=== PATIENT | female | born 1945 | race Caucasian/White ===

== ENCOUNTER 2020-06-10 11:33 | Inpatient (IN) ==
[2020-06-10] MEDS ORDERED: *HR* Dextrose 50 % in Water (Vial) 50 ML VIAL IVP PRN (15:10)
[2020-06-10] MEDS ORDERED: Dextrose Gel 15 GM/37.5 ML TUBE PO PRN ×2 (15:10)
[2020-06-10] MEDS ORDERED: D5% in Water 1,000 ML IVC PRN (15:10)
[2020-06-10] MEDS ORDERED: Naloxone 0.4 MG/ML INJ IVP PRN (15:11)
[2020-06-10] MEDS ORDERED: Acetaminophen 325 MG TABLET PO PRN (15:22)
[2020-06-10] MEDS ORDERED: Ondansetron 4 MG/2 ML VIAL IVP PRN (15:22)
[2020-06-10] MEDS: Insulin LISPRO 300 UNITS/3 ML VIAL SQ SCH ×2 (17:43→20:16)
[2020-06-10] MEDS ORDERED: Perflutren Lipid Microsphere 1.3 ML in 0.9 % Sodium Chloride 8.7 ML IVP PRN (18:01)
[2020-06-10] MEDS: Aspirin Enteric Coated 81 MG Tablet PO SCH ×2 (18:11→20:23)
[2020-06-10] MEDS ORDERED: Potassium Chloride Elixir 20 MEQ/15 ML UDC PO ONE (20:20)
[2020-06-10] MEDS ORDERED: Magnesium Oxide 400 MG TABLET PO ONE (20:20)
[2020-06-11 01:19] LABS: Hematocrit 46.5 % (35.3-44.9); Hemoglobin 15.3 g/dL (11.5-15.4); Mean Corpuscular HGB Conc 32.9 g/dL (31.6-35.5); Mean Corpuscular Hemoglobin 27.4 pg (28.0-33.3); Mean Corpuscular Volume 83.2 fL (83.0-100.0); Mean Platelet Volume 9.5 fL (9.4-12.4); Platelet Count 271 K/mcL (140-400); Red Blood Count 5.59 M/mcL (3.82-4.97); Red Cell Distribution Width 12.5 % (11.5-14.5); White Blood Count 10.9 K/mcL (4.3-11.1)
[2020-06-11 01:29] LABS: BUN/Creatinine Ratio 19 (6-26); Blood Urea Nitrogen 11 mg/dL (8-23); Calcium 9.8 mg/dL (8.6-10.3); Carbon Dioxide 22 mEq/L (23-29); Chloride 104 mEq/L (98-107); Chol/HDL Ratio 5.9 (0-4.9); Cholesterol 206 mg/dL (< 200); Glucose 256 mg/dL (70-105); HDL Cholesterol 35 mg/dL (40-59); LDL Cholesterol,Calculated 130 mg/dL (< 100); Magnesium 1.5 mg/dL (1.6-2.6); Osmolality,Calculated 288 (280-300); Phosphorous 3.1 mg/dL (2.7-4.5); Potassium 4.3 mEq/L (3.5-5.1); Sodium 135 mEq/L (136-145); Triglycerides 203 mg/dL (< 150); eGFR For African Americans > 60 (> 60); eGFR For Non-African Americans > 60 (> 60)
[2020-06-11 02:41] LABS: Estimated Average Glucose 266 mg/dl
[2020-06-11] MEDS: Preparation H Ointment 57 GM TUBE RC SCH ×4 (04:49→21:22)
[2020-06-11] MEDS: Aspirin Enteric Coated 81 MG Tablet PO SCH (08:49)
[2020-06-11] MEDS: Insulin LISPRO 300 UNITS/3 ML VIAL SQ SCH ×4 (08:49→21:19)
[2020-06-11] MEDS ORDERED: Magnesium Sulfate 1 GM/102 ML PIGGYBACK IVPB ONE (11:11)
[2020-06-12 04:44] LABS: Hematocrit 44.8 % (35.3-44.9); Mean Corpuscular HGB Conc 33.5 g/dL (31.6-35.5); Mean Corpuscular Hemoglobin 27.9 pg (28.0-33.3); Mean Corpuscular Volume 83.4 fL (83.0-100.0); Mean Platelet Volume 9.5 fL (9.4-12.4); Platelet Count 245 K/mcL (140-400); Red Blood Count 5.37 M/mcL (3.82-4.97); Red Cell Distribution Width 12.3 % (11.5-14.5)
[2020-06-12 04:53] LABS: BUN/Creatinine Ratio 26 (6-26); Blood Urea Nitrogen 17 mg/dL (8-23); Calcium 9.3 mg/dL (8.6-10.3); Carbon Dioxide 23 mEq/L (23-29); Chloride 105 mEq/L (98-107); Glucose 259 mg/dL (70-105); Osmolality,Calculated 296 (280-300); Potassium 3.6 mEq/L (3.5-5.1); Sodium 138 mEq/L (136-145); eGFR For African Americans > 60 (> 60); eGFR For Non-African Americans > 60 (> 60)
[2020-06-12] MEDS: Insulin LISPRO 300 UNITS/3 ML VIAL SQ SCH ×4 (08:20→16:52)
[2020-06-12] MEDS: Aspirin 325 MG TABLET PO SCH (08:20)
[2020-06-12] MEDS: Preparation H Ointment 57 GM TUBE RC SCH ×2 (08:21→19:52)
[2020-06-12] MEDS ORDERED: Insulin LISPRO 300 UNITS/3 ML VIAL SQ SCH ×2 (11:30→21:00)
[2020-06-12] MEDS: Metoprolol XL (24 HR) Succ 50 MG TAB.ER.24H PO SCH (12:15)
[2020-06-12] MEDS: amLODIPine 5 MG TABLET PO SCH ×2 (12:15→19:51)
[2020-06-13 05:41] LABS: Hematocrit 45.1 % (35.3-44.9); Hemoglobin 14.8 g/dL (11.5-15.4); Mean Corpuscular HGB Conc 32.8 g/dL (31.6-35.5); Mean Corpuscular Hemoglobin 27.8 pg (28.0-33.3); Mean Corpuscular Volume 84.6 fL (83.0-100.0); Mean Platelet Volume 9.4 fL (9.4-12.4); Platelet Count 242 K/mcL (140-400); Red Blood Count 5.33 M/mcL (3.82-4.97); Red Cell Distribution Width 12.4 % (11.5-14.5); White Blood Count 8.5 K/mcL (4.3-11.1)
[2020-06-13] MEDS: Insulin LISPRO 300 UNITS/3 ML VIAL SQ SCH ×3 (08:54→17:45)
[2020-06-13] MEDS: amLODIPine 5 MG TABLET PO SCH ×2 (08:54→20:36)
[2020-06-13] MEDS: Aspirin 325 MG TABLET PO SCH (08:54)
[2020-06-13] MEDS: Metoprolol XL (24 HR) Succ 50 MG TAB.ER.24H PO SCH (08:54)
[2020-06-13] MEDS: Preparation H Ointment 57 GM TUBE RC SCH ×2 (08:55→20:36)
[2020-06-13] MEDS ORDERED: Insulin LISPRO 300 UNITS/3 ML VIAL SQ SCH (21:00)
[2020-06-14 04:27] LABS: Hematocrit 46.3 % (35.3-44.9); Hemoglobin 15.1 g/dL (11.5-15.4); Mean Corpuscular HGB Conc 32.6 g/dL (31.6-35.5); Mean Corpuscular Hemoglobin 27.3 pg (28.0-33.3); Mean Corpuscular Volume 83.7 fL (83.0-100.0); Mean Platelet Volume 9.3 fL (9.4-12.4); Platelet Count 261 K/mcL (140-400); Red Blood Count 5.53 M/mcL (3.82-4.97); Red Cell Distribution Width 12.3 % (11.5-14.5); White Blood Count 8.5 K/mcL (4.3-11.1)
[2020-06-14] MEDS: Aspirin 325 MG TABLET PO SCH (07:47)
[2020-06-14] MEDS: amLODIPine 5 MG TABLET PO SCH (07:47)
[2020-06-14] MEDS: Metoprolol XL (24 HR) Succ 50 MG TAB.ER.24H PO SCH (07:47)
[2020-06-14] MEDS: Insulin LISPRO 300 UNITS/3 ML VIAL SQ SCH ×2 (07:50→13:15)
[2020-06-14] MEDS: Preparation H Ointment 57 GM TUBE RC SCH (07:56)
[2020-06-14] MEDS ORDERED: polyethylene glycoL 3350 17 GM POWD.PACK PO SCH (09:00)
[2020-06-14 11:53] LABS: Adenovirus Not Detected (Not Detect); Coronavirus 229E Not Detected (Not Detect); Coronavirus HKU1 Not Detected (Not Detect); Coronavirus NL63 Not Detected (Not Detect); Coronavirus OC43 Not Detected (Not Detect); Human Metapneumovirus Not Detected (Not Detect); Human Rhinovirus/Enterovirus Not Detected (Not Detect); Influenza A Subtype 2009 H1 Not Detected (Not Detect); SARS-CoV-2 Not Detected (Not Detect)
[2020-06-14 11:54] LABS: Bordetella Pertussis Not Detected (Not Detect); Chlamydophila pneumoniae Not Detected (Not Detect); Influenza B Not Detected (Not Detect); Mycoplasma pneumoniae Not Detected (Not Detect); Parainfluenza Virus 1 Not Detected (Not Detect); Parainfluenza Virus 2 Not Detected (Not Detect); Parainfluenza Virus 3 Not Detected (Not Detect); Parainfluenza Virus 4 Not Detected (Not Detect); Respiratory Syncytial Virus Not Detected (Not Detect)
[2020-06-14 15:41] VITALS: BP 124/73
[2020-06-14] MEDS ORDERED: Insulin DETEMIR 100 UNIT/ML X5UNITS SQ SCH (21:00)
== END 2020-06-14 17:37 | DRG 66 ==
LOC: 3BNU
PROVIDERS: ADMIT Student in an Organized Health Care Education/Training Program; ATTEND Student in an Organized Health Care Education/Training Program

== ENCOUNTER 2021-06-28 18:13 | Inpatient (IN) ==
[2021-06-28] MEDS ORDERED: Ondansetron 4 MG/2 ML VIAL IVP PRN (23:41)
[2021-06-28] MEDS ORDERED: Melatonin 3 MG TABLET PO PRN (23:41)
[2021-06-28] MEDS ORDERED: Naloxone 0.4 MG/ML INJ IVP PRN (23:41)
[2021-06-29] MEDS ORDERED: 0.9 % Sodium Chloride 1,000 ML IVC ONE (02:12)
[2021-06-29] MEDS ORDERED: D5% in Water 1,000 ML IVC PRN (02:16)
[2021-06-29] MEDS ORDERED: Dextrose Gel 15 GM/37.5 ML TUBE PO PRN ×2 (02:16)
[2021-06-29] MEDS ORDERED: *HR* Dextrose 50 % in Water (Syg) 50 ML SYRINGE IVP PRN (02:16)
[2021-06-29 03:08] LABS: Basophils % 0.2 %; Hematocrit 44.5 % (35.3-44.9); Hemoglobin 14.7 g/dL (11.5-15.4); Immature Granulocytes % 0.2 % (0-4); Lymphocytes # 1.3 K/mcL (0.6-4.6); Lymphocytes % 15.2 %; Mean Corpuscular Hemoglobin 27.7 pg (28.0-33.3); Mean Corpuscular Volume 83.8 fL (83.0-100.0); Mean Platelet Volume 9.2 fL (9.4-12.4); Neutrophils # 6.3 K/mcL (1.6-8.9); Platelet Count 131 K/mcL (140-400); Red Blood Count 5.31 M/mcL (3.82-4.97); Red Cell Distribution Width 12.8 % (11.5-14.5); Segmented Neutrophils % 73.4 %; White Blood Count 8.6 K/mcL (4.3-11.1)
[2021-06-29 03:17] LABS: INR 1.1; Prothrombin Time 12.4 Seconds (9.4-12.1)
[2021-06-29 03:23] LABS: Alanine Aminotransferase 20 Units/L (7-52); Albumin 3.5 g/dL (3.5-5.7); Albumin/Globulin Ratio 1.4 (1.1-2.2); Alkaline Phosphatase 58 Units/L (34-104); Aspartate Amino Transferase 20 Units/L (13-39); BUN/Creatinine Ratio 14 (6-26); Bilirubin,Total 0.4 mg/dL (0.3-1.0); Blood Urea Nitrogen 7 mg/dL (8-23); Calcium 8.3 mg/dL (8.6-10.3); Carbon Dioxide 23 mEq/L (23-29); Chloride 107 mEq/L (98-107); Chol/HDL Ratio 2.7 (0-4.9); Cholesterol 98 mg/dL (< 200); Globulin 2.5 g/dL (2.4-3.5); Glucose 75 mg/dL (70-105); HDL Cholesterol 36 mg/dL (40-59); LDL Cholesterol,Calculated 50 mg/dL (< 100); Magnesium 1.6 mg/dL (1.6-2.6); Osmolality,Calculated 285 (280-300); Phosphorous 2.3 mg/dL (2.7-4.5); Sodium 139 mEq/L (136-145); Triglycerides 60 mg/dL (< 150); Troponin I 0.03 ng/mL (< 0.04); eGFR For African Americans > 60 (> 60); eGFR For Non-African Americans > 60 (> 60)
[2021-06-29] MEDS ORDERED: Potassium Chloride Elixir 20 MEQ/15 ML UDC PO ONE (05:18)
[2021-06-29 07:59] LABS: Estimated Average Glucose 209 mg/dl; Hemoglobin A1C 8.9 %
[2021-06-29] MEDS: Insulin LISPRO 300 UNITS/3 ML VIAL SUBQ SCH ×4 (08:37→20:52)
[2021-06-29] MEDS ORDERED: cefTRIAXone 1,000 MG in Water for inj. (sterile) 10 ML IVP SCH (09:00)
[2021-06-29] MEDS: Aspirin Enteric Coated 81 MG Tablet PO SCH (09:19)
[2021-06-29] MEDS: Acetaminophen 325 MG TABLET PO PRN ×2 (09:24→21:07)
[2021-06-29] MEDS ORDERED: polyethylene glycoL 3350 17 GM POWD.PACK PO PRN (12:16)
[2021-06-29] MEDS: amLODIPine 5 MG TABLET PO SCH (20:52)
[2021-06-30 06:07] LABS: Hematocrit 43.1 % (35.3-44.9); Hemoglobin 13.9 g/dL (11.5-15.4); Mean Corpuscular HGB Conc 32.3 g/dL (31.6-35.5); Mean Corpuscular Volume 83.7 fL (83.0-100.0); Mean Platelet Volume 9.4 fL (9.4-12.4); Platelet Count 118 K/mcL (140-400); Red Blood Count 5.15 M/mcL (3.82-4.97); Red Cell Distribution Width 12.5 % (11.5-14.5); White Blood Count 4.8 K/mcL (4.3-11.1)
[2021-06-30 06:09] LABS: Alanine Aminotransferase 16 Units/L (7-52); Albumin 3.2 g/dL (3.5-5.7); Albumin/Globulin Ratio 1.4 (1.1-2.2); Alkaline Phosphatase 52 Units/L (34-104); Aspartate Amino Transferase 24 Units/L (13-39); BUN/Creatinine Ratio 9 (6-26); Bilirubin,Total 0.5 mg/dL (0.3-1.0); Blood Urea Nitrogen 5 mg/dL (8-23); Calcium 7.8 mg/dL (8.6-10.3); Carbon Dioxide 23 mEq/L (23-29); Chloride 105 mEq/L (98-107); Globulin 2.3 g/dL (2.4-3.5); Glucose 99 mg/dL (70-105); Osmolality,Calculated 283 (280-300); Phosphorous 2.3 mg/dL (2.7-4.5); Potassium 2.9 mEq/L (3.5-5.1); Sodium 138 mEq/L (136-145); Total Protein 5.5 g/dL (6.4-8.9); eGFR For African Americans > 60 (> 60); eGFR For Non-African Americans > 60 (> 60)
[2021-06-30] MEDS: Aspirin Enteric Coated 81 MG Tablet PO SCH (08:59)
[2021-06-30] MEDS: Acetaminophen 325 MG TABLET PO PRN ×2 (08:59→20:14)
[2021-06-30] MEDS: amLODIPine 5 MG TABLET PO SCH ×2 (08:59→20:15)
[2021-06-30] MEDS: Insulin LISPRO 300 UNITS/3 ML VIAL SUBQ SCH ×4 (09:00→20:16)
[2021-06-30] MEDS: Metoprolol XL (24 HR) Succ 50 MG TAB.ER.24H PO SCH (10:46)
[2021-06-30] MEDS ORDERED: Potassium Phosphate 44 MEQ in 0.9 % Sodium Chloride 250 ML IVPB ONE (13:00)
[2021-06-30] MEDS: Piperacillin/Tazobactam 3.375 GM in 0.9 % Sodium Chloride Mini Bag 100 ML IVPB SCH (17:27)
[2021-06-30] MEDS: Gabapentin 100 MG CAPSULE PO SCH (20:15)
[2021-07-01] MEDS: Piperacillin/Tazobactam 3.375 GM in 0.9 % Sodium Chloride Mini Bag 100 ML IVPB SCH ×3 (01:21→17:28)
[2021-07-01 03:01] LABS: Hematocrit 43.9 % (35.3-44.9); Hemoglobin 14.4 g/dL (11.5-15.4); Mean Corpuscular HGB Conc 32.8 g/dL (31.6-35.5); Mean Corpuscular Hemoglobin 27.1 pg (28.0-33.3); Mean Corpuscular Volume 82.7 fL (83.0-100.0); Mean Platelet Volume 9.4 fL (9.4-12.4); Platelet Count 128 K/mcL (140-400); Red Blood Count 5.31 M/mcL (3.82-4.97); Red Cell Distribution Width 12.6 % (11.5-14.5); White Blood Count 4.4 K/mcL (4.3-11.1)
[2021-07-01 03:22] LABS: BUN/Creatinine Ratio 15 (6-26); Blood Urea Nitrogen 8 mg/dL (8-23); Calcium 7.9 mg/dL (8.6-10.3); Carbon Dioxide 22 mEq/L (23-29); Chloride 105 mEq/L (98-107); Glucose 122 mg/dL (70-105); Osmolality,Calculated 282 (280-300); Phosphorous 2.4 mg/dL (2.7-4.5); Potassium 4.5 mEq/L (3.5-5.1); Sodium 136 mEq/L (136-145); eGFR For African Americans > 60 (> 60); eGFR For Non-African Americans > 60 (> 60)
[2021-07-01] MEDS: Insulin LISPRO 300 UNITS/3 ML VIAL SUBQ SCH ×4 (07:33→20:40)
[2021-07-01] MEDS: Gabapentin 100 MG CAPSULE PO SCH ×2 (09:02→20:41)
[2021-07-01] MEDS: Aspirin Enteric Coated 81 MG Tablet PO SCH (09:02)
[2021-07-01] MEDS: Metoprolol XL (24 HR) Succ 50 MG TAB.ER.24H PO SCH (09:02)
[2021-07-01] MEDS: amLODIPine 5 MG TABLET PO SCH ×2 (09:02→20:41)
[2021-07-01] MEDS: Acetaminophen 325 MG TABLET PO PRN (12:18)
[2021-07-01 14:59] LABS: Bilirubin,Urine Negative (Negative); Blood,Urine Negative (Negative); Clarity,Urine Clear (Clear); Color,Urine Light-Yellow (Yellow); Glucose,Urine (UA) 300 mg/dL (Normal); Ketones,Urine Trace mg/dL (Negative); Leukocyte Esterase,Urine Negative (Negative); Nitrite,Urine Negative (Negative); PH,Urine 6.5 pH Units (5.0-8.0); Protein,Urine Negative (Neg-Trace); RBC,Urine 0-3 per hpf (0-3); Specific Gravity,Urine 1.017 (1.010-1.025); Squamous Epithelial Cell,Urine Few per hpf (None-Few); Urobilinogen,Urine Normal (Normal); WBC,Urine 0-3 per hpf (0-3)
[2021-07-01 16:11] LABS: Adenovirus Not Detected (Not Detect); Coronavirus 229E Not Detected (Not Detect); Coronavirus HKU1 Not Detected (Not Detect); Coronavirus NL63 Not Detected (Not Detect); Coronavirus OC43 Not Detected (Not Detect)
[2021-07-01 16:12] LABS: Bordetella Pertussis Not Detected (Not Detect); Chlamydophila pneumoniae Not Detected (Not Detect); Human Metapneumovirus Not Detected (Not Detect); Human Rhinovirus/Enterovirus Not Detected (Not Detect); Influenza A Subtype 2009 H1 Not Detected (Not Detect); Influenza B Not Detected (Not Detect); Mycoplasma pneumoniae Not Detected (Not Detect); Parainfluenza Virus 1 Not Detected (Not Detect); Parainfluenza Virus 2 Not Detected (Not Detect); Parainfluenza Virus 3 Not Detected (Not Detect); Parainfluenza Virus 4 Not Detected (Not Detect); Respiratory Syncytial Virus Not Detected (Not Detect); SARS-CoV-2 DETECTED (Not Detect)
[2021-07-01] MEDS ORDERED: Albuterol 2.5 MG/3 ML NEBULIZER IH PRN (17:10)
[2021-07-01] MEDS: Dexamethasone Sodium Phos/PF 10 MG/ML VIAL IVP SCH (19:01)
[2021-07-01] MEDS ORDERED: CefTRIAXone 1,000 MG VIAL ONE ×2 (19:01→19:03)
[2021-07-01] MEDS: Azithromycin 500 MG in 0.9 % Sodium Chloride 250 ML IVPB SCH (19:02)
[2021-07-01] MEDS: cefTRIAXone 1,000 MG in 0.9 % Sodium Chloride Mini Bag 100 ML IVPB SCH ×2 (19:06→19:13)
[2021-07-01] MEDS: *HR* Enoxaparin 40 MG/0.4 ML SYRINGE SQ SCH (20:41)
[2021-07-01] MEDS: Ascorbic Acid 500 MG TABLET PO SCH (20:41)
[2021-07-01] MEDS ORDERED: Melatonin 3 MG TABLET PO SCH (21:00)
[2021-07-01] MEDS: Ipratropium/Albuterol Neb 3 ML IH SCH (21:02)
[2021-07-02 03:13] LABS: Hematocrit 45.8 % (35.3-44.9); Hemoglobin 15.3 g/dL (11.5-15.4); Mean Corpuscular HGB Conc 33.4 g/dL (31.6-35.5); Mean Corpuscular Hemoglobin 27.6 pg (28.0-33.3); Mean Corpuscular Volume 82.7 fL (83.0-100.0); Mean Platelet Volume 9.1 fL (9.4-12.4); Platelet Count 145 K/mcL (140-400); Red Blood Count 5.54 M/mcL (3.82-4.97); Red Cell Distribution Width 12.5 % (11.5-14.5); White Blood Count 3.9 K/mcL (4.3-11.1)
[2021-07-02] MEDS: Ipratropium/Albuterol Neb 3 ML IH SCH ×2 (03:25→10:01)
[2021-07-02 03:31] LABS: Alanine Aminotransferase 35 Units/L (7-52); Albumin 3.2 g/dL (3.5-5.7); Albumin/Globulin Ratio 1.2 (1.1-2.2); Alkaline Phosphatase 57 Units/L (34-104); Aspartate Amino Transferase 48 Units/L (13-39); BUN/Creatinine Ratio 18 (6-26); Bilirubin,Total 0.5 mg/dL (0.3-1.0); Blood Urea Nitrogen 10 mg/dL (8-23); Carbon Dioxide 26 mEq/L (23-29); Chloride 100 mEq/L (98-107); Globulin 2.7 g/dL (2.4-3.5); Glucose 127 mg/dL (70-105); Lactate Dehydrogenase 293 Units/L (140-271); Osmolality,Calculated 281 (280-300); Potassium 3.6 mEq/L (3.5-5.1); Sodium 135 mEq/L (136-145); Total Protein 5.9 g/dL (6.4-8.9); eGFR For African Americans > 60 (> 60); eGFR For Non-African Americans > 60 (> 60)
[2021-07-02 03:48] LABS: Ferritin 806 ng/mL (10-120)
[2021-07-02] MEDS: Insulin LISPRO 300 UNITS/3 ML VIAL SUBQ SCH ×4 (09:50→20:47)
[2021-07-02] MEDS: Metoprolol XL (24 HR) Succ 50 MG TAB.ER.24H PO SCH (09:51)
[2021-07-02] MEDS: Ascorbic Acid 500 MG TABLET PO SCH ×2 (09:51→19:34)
[2021-07-02] MEDS: Gabapentin 100 MG CAPSULE PO SCH ×2 (09:51→19:34)
[2021-07-02] MEDS: Zinc Sulfate 220 MG CAPSULE PO SCH (09:51)
[2021-07-02] MEDS: amLODIPine 5 MG TABLET PO SCH ×2 (09:51→19:34)
[2021-07-02] MEDS: Folic Acid 1 MG TABLET PO SCH (09:51)
[2021-07-02] MEDS: Aspirin Enteric Coated 81 MG Tablet PO SCH (09:51)
[2021-07-02] MEDS: Pantoprazole 40 MG VIAL IVP SCH (09:52)
[2021-07-02] MEDS: *HR* Enoxaparin 40 MG/0.4 ML SYRINGE SQ SCH ×2 (09:52→19:34)
[2021-07-02] MEDS: Dexamethasone Sodium Phos/PF 10 MG/ML VIAL IVP SCH (09:53)
[2021-07-02] MEDS: cefTRIAXone 1,000 MG in 0.9 % Sodium Chloride Mini Bag 100 ML IVPB SCH (09:55)
[2021-07-02] MEDS: Insulin DETEMIR 100 UNIT/ML X5UNITS SUBQ SCH (10:23)
[2021-07-02] MEDS ORDERED: Remdesivir 200 MG in 0.9 % Sodium Chloride 100 ML IVPB ONE (12:00)
[2021-07-02] MEDS ORDERED: *HR* Dextrose 50 % in Water (Syg) 50 ML SYRINGE IVP PRN (14:03)
[2021-07-02] MEDS ORDERED: Dextrose Gel 15 GM/37.5 ML TUBE PO PRN ×2 (14:03)
[2021-07-02] MEDS ORDERED: D5% in Water 1,000 ML IVC PRN (14:03)
[2021-07-02] MEDS: Azithromycin 500 MG in 0.9 % Sodium Chloride 250 ML IVPB SCH (17:29)
[2021-07-02] MEDS: Acetaminophen 325 MG TABLET PO PRN (23:54)
[2021-07-03] MEDS: *HR* Metoprolol 5 MG/5 ML VIAL IVP PRN ×2 (02:07→11:42)
[2021-07-03 02:14] LABS: Hematocrit 43.6 % (35.3-44.9); Hemoglobin 14.4 g/dL (11.5-15.4); Mean Corpuscular Hemoglobin 27.1 pg (28.0-33.3); Mean Corpuscular Volume 82.1 fL (83.0-100.0); Mean Platelet Volume 9.5 fL (9.4-12.4); Platelet Count 158 K/mcL (140-400); Red Blood Count 5.31 M/mcL (3.82-4.97); Red Cell Distribution Width 12.6 % (11.5-14.5); White Blood Count 4.5 K/mcL (4.3-11.1)
[2021-07-03 02:32] LABS: Albumin/Globulin Ratio 1.3 (1.1-2.2); Bilirubin,Direct 0.2 mg/dL (0.0-0.2); Bilirubin,Indirect 0.4 mg/dL (0.0-1.0); Bilirubin,Total 0.6 mg/dL (0.3-1.0); Globulin 2.3 g/dL (2.4-3.5); Total Protein 5.3 g/dL (6.4-8.9)
[2021-07-03 02:34] LABS: Alanine Aminotransferase 41 Units/L (7-52); Albumin/Globulin Ratio 1.3 (1.1-2.2); Alkaline Phosphatase 51 Units/L (34-104); Aspartate Amino Transferase 57 Units/L (13-39); BUN/Creatinine Ratio 26 (6-26); Bilirubin,Total 0.5 mg/dL (0.3-1.0); Blood Urea Nitrogen 15 mg/dL (8-23); Calcium 7.9 mg/dL (8.6-10.3); Carbon Dioxide 25 mEq/L (23-29); Chloride 102 mEq/L (98-107); Globulin 2.3 g/dL (2.4-3.5); Glucose 188 mg/dL (70-105); Osmolality,Calculated 288 (280-300); Potassium 3.3 mEq/L (3.5-5.1); Sodium 136 mEq/L (136-145); Total Protein 5.3 g/dL (6.4-8.9); eGFR For African Americans > 60 (> 60); eGFR For Non-African Americans > 60 (> 60)
[2021-07-03 02:35] LABS: Lactate Dehydrogenase 330 Units/L (140-271)
[2021-07-03 03:01] LABS: Ferritin 752 ng/mL (10-120)
[2021-07-03] MEDS: cefTRIAXone 1,000 MG in 0.9 % Sodium Chloride Mini Bag 100 ML IVPB SCH (09:54)
[2021-07-03] MEDS: Pantoprazole 40 MG VIAL IVP SCH (09:55)
[2021-07-03] MEDS: Aspirin Enteric Coated 81 MG Tablet PO SCH ×2 (09:55→09:56)
[2021-07-03] MEDS: *HR* Enoxaparin 40 MG/0.4 ML SYRINGE SQ SCH ×2 (09:55→20:49)
[2021-07-03] MEDS: Ascorbic Acid 500 MG TABLET PO SCH ×2 (09:56→20:48)
[2021-07-03] MEDS: Folic Acid 1 MG TABLET PO SCH (09:56)
[2021-07-03] MEDS: Dexamethasone Sodium Phos/PF 10 MG/ML VIAL IVP SCH (09:56)
[2021-07-03] MEDS: Zinc Sulfate 220 MG CAPSULE PO SCH (09:57)
[2021-07-03] MEDS: Gabapentin 100 MG CAPSULE PO SCH ×2 (09:57→20:48)
[2021-07-03] MEDS: amLODIPine 5 MG TABLET PO SCH ×2 (09:59→20:49)
[2021-07-03] MEDS: Metoprolol XL (24 HR) Succ 50 MG TAB.ER.24H PO SCH (09:59)
[2021-07-03] MEDS: Insulin LISPRO 300 UNITS/3 ML VIAL SUBQ SCH ×4 (10:12→20:55)
[2021-07-03] MEDS: Insulin DETEMIR 100 UNIT/ML X5UNITS SUBQ SCH (10:14)
[2021-07-03] MEDS ORDERED: Perflutren Lipid Microsphere 1.3 ML in 0.9 % Sodium Chloride 8.7 ML IVP PRN (15:00)
[2021-07-03] MEDS: Remdesivir 100 MG in 0.9 % Sodium Chloride 100 ML IVPB SCH (15:26)
[2021-07-03] MEDS: 0.9 % Sodium Chloride 1,000 ML IVC SCH (15:27)
[2021-07-03] MEDS: Azithromycin 500 MG in 0.9 % Sodium Chloride 250 ML IVPB SCH (18:02)
[2021-07-04 02:26] LABS: Hematocrit 41.2 % (35.3-44.9); Hemoglobin 13.6 g/dL (11.5-15.4); Mean Corpuscular Hemoglobin 27.4 pg (28.0-33.3); Mean Corpuscular Volume 82.9 fL (83.0-100.0); Mean Platelet Volume 9.2 fL (9.4-12.4); Platelet Count 183 K/mcL (140-400); Red Blood Count 4.97 M/mcL (3.82-4.97); Red Cell Distribution Width 12.8 % (11.5-14.5); White Blood Count 4.7 K/mcL (4.3-11.1)
[2021-07-04 02:53] LABS: Alanine Aminotransferase 37 Units/L (7-52); Albumin 2.9 g/dL (3.5-5.7); Albumin/Globulin Ratio 1.3 (1.1-2.2); Alkaline Phosphatase 47 Units/L (34-104); Aspartate Amino Transferase 50 Units/L (13-39); BUN/Creatinine Ratio 30 (6-26); Bilirubin,Direct 0.1 mg/dL (0.0-0.2); Bilirubin,Indirect 0.4 mg/dL (0.0-1.0); Bilirubin,Total 0.5 mg/dL (0.3-1.0); Blood Urea Nitrogen 14 mg/dL (8-23); Calcium 7.8 mg/dL (8.6-10.3); Carbon Dioxide 24 mEq/L (23-29); Chloride 105 mEq/L (98-107); Globulin 2.2 g/dL (2.4-3.5); Glucose 98 mg/dL (70-105); Magnesium 1.7 mg/dL (1.6-2.6); Osmolality,Calculated 284 (280-300); Phosphorous 2.1 mg/dL (2.7-4.5); Potassium 3.2 mEq/L (3.5-5.1); Sodium 137 mEq/L (136-145); Total Protein 5.1 g/dL (6.4-8.9); eGFR For African Americans > 60 (> 60); eGFR For Non-African Americans > 60 (> 60)
[2021-07-04 03:07] LABS: Ferritin 668 ng/mL (10-120); Lactate Dehydrogenase 377 Units/L (140-271)
[2021-07-04] MEDS: 0.9 % Sodium Chloride 1,000 ML IVC SCH (05:16)
[2021-07-04] MEDS: Insulin LISPRO 300 UNITS/3 ML VIAL SUBQ SCH ×4 (08:09→20:48)
[2021-07-04] MEDS: Zinc Sulfate 220 MG CAPSULE PO SCH (08:31)
[2021-07-04] MEDS: Folic Acid 1 MG TABLET PO SCH (08:31)
[2021-07-04] MEDS: amLODIPine 5 MG TABLET PO SCH ×2 (08:31→20:50)
[2021-07-04] MEDS: Ascorbic Acid 500 MG TABLET PO SCH ×2 (08:31→20:50)
[2021-07-04] MEDS: Gabapentin 100 MG CAPSULE PO SCH ×2 (08:32→20:50)
[2021-07-04] MEDS: *HR* Enoxaparin 40 MG/0.4 ML SYRINGE SQ SCH ×2 (08:32→20:49)
[2021-07-04] MEDS: Pantoprazole 40 MG VIAL IVP SCH (08:33)
[2021-07-04] MEDS: Dexamethasone Sodium Phos/PF 10 MG/ML VIAL IVP SCH (08:34)
[2021-07-04] MEDS: Insulin DETEMIR 100 UNIT/ML X5UNITS SUBQ SCH (08:36)
[2021-07-04] MEDS: Aspirin Enteric Coated 81 MG Tablet PO SCH (10:59)
[2021-07-04] MEDS: cefTRIAXone 1,000 MG in 0.9 % Sodium Chloride Mini Bag 100 ML IVPB SCH (11:00)
[2021-07-04] MEDS: Remdesivir 100 MG in 0.9 % Sodium Chloride 100 ML IVPB SCH (12:29)
[2021-07-04] MEDS ORDERED: Potassium Phosphate 44 MEQ in 0.9 % Sodium Chloride 250 ML IVPB ONE (12:37)
[2021-07-04] MEDS: Ipratropium 1 PUFF INHALER IH SCH ×3 (13:00→20:28)
[2021-07-04] MEDS: Azithromycin 500 MG in 0.9 % Sodium Chloride 250 ML IVPB SCH (17:42)
[2021-07-05] MEDS: Ipratropium 1 PUFF INHALER IH SCH ×7 (00:29→23:50)
[2021-07-05 03:40] LABS: Hematocrit 39.9 % (35.3-44.9); Hemoglobin 13.1 g/dL (11.5-15.4); Mean Corpuscular HGB Conc 32.8 g/dL (31.6-35.5); Mean Corpuscular Hemoglobin 27.2 pg (28.0-33.3); Mean Platelet Volume 9.6 fL (9.4-12.4); Platelet Count 209 K/mcL (140-400); Red Blood Count 4.81 M/mcL (3.82-4.97); Red Cell Distribution Width 12.5 % (11.5-14.5)
[2021-07-05 04:01] LABS: Alanine Aminotransferase 43 Units/L (7-52); Albumin 2.8 g/dL (3.5-5.7); Albumin/Globulin Ratio 1.2 (1.1-2.2); Alkaline Phosphatase 51 Units/L (34-104); Aspartate Amino Transferase 53 Units/L (13-39); BUN/Creatinine Ratio 26 (6-26); Bilirubin,Direct 0.2 mg/dL (0.0-0.2); Bilirubin,Indirect 0.3 mg/dL (0.0-1.0); Bilirubin,Total 0.5 mg/dL (0.3-1.0); Blood Urea Nitrogen 14 mg/dL (8-23); Calcium 7.8 mg/dL (8.6-10.3); Carbon Dioxide 26 mEq/L (23-29); Chloride 108 mEq/L (98-107); Globulin 2.3 g/dL (2.4-3.5); Glucose 192 mg/dL (70-105); Lactate Dehydrogenase 346 Units/L (140-271); Osmolality,Calculated 298 (280-300); Phosphorous 3.1 mg/dL (2.7-4.5); Potassium 3.5 mEq/L (3.5-5.1); Sodium 141 mEq/L (136-145); Total Protein 5.1 g/dL (6.4-8.9); eGFR For African Americans > 60 (> 60); eGFR For Non-African Americans > 60 (> 60)
[2021-07-05 04:16] LABS: Ferritin 589 ng/mL (10-120)
[2021-07-05] MEDS: cefTRIAXone 1,000 MG in 0.9 % Sodium Chloride Mini Bag 100 ML IVPB SCH (09:07)
[2021-07-05] MEDS: Pantoprazole 40 MG VIAL IVP SCH (09:08)
[2021-07-05] MEDS: Dexamethasone Sodium Phos/PF 10 MG/ML VIAL IVP SCH (09:09)
[2021-07-05] MEDS: Gabapentin 100 MG CAPSULE PO SCH ×2 (09:10→20:50)
[2021-07-05] MEDS: Ascorbic Acid 500 MG TABLET PO SCH ×2 (09:10→20:51)
[2021-07-05] MEDS: *HR* Enoxaparin 40 MG/0.4 ML SYRINGE SQ SCH ×2 (09:10→20:50)
[2021-07-05] MEDS: amLODIPine 5 MG TABLET PO SCH ×2 (09:10→20:51)
[2021-07-05] MEDS: Folic Acid 1 MG TABLET PO SCH (09:10)
[2021-07-05] MEDS: Zinc Sulfate 220 MG CAPSULE PO SCH (09:10)
[2021-07-05] MEDS: Insulin LISPRO 300 UNITS/3 ML VIAL SUBQ SCH ×4 (09:11→20:48)
[2021-07-05] MEDS: Aspirin Enteric Coated 81 MG Tablet PO SCH (09:13)
[2021-07-05] MEDS: Insulin DETEMIR 100 UNIT/ML X5UNITS SUBQ SCH (09:15)
[2021-07-05] MEDS: Remdesivir 100 MG in 0.9 % Sodium Chloride 100 ML IVPB SCH (13:32)
[2021-07-05] MEDS: Azithromycin 500 MG in 0.9 % Sodium Chloride 250 ML IVPB SCH (17:26)
[2021-07-06 03:00] LABS: Alanine Aminotransferase 41 Units/L (7-52); Albumin/Globulin Ratio 1.3 (1.1-2.2); Alkaline Phosphatase 53 Units/L (34-104); Aspartate Amino Transferase 46 Units/L (13-39); BUN/Creatinine Ratio 23 (6-26); Bilirubin,Total 0.7 mg/dL (0.3-1.0); Blood Urea Nitrogen 11 mg/dL (8-23); Calcium 8.1 mg/dL (8.6-10.3); Carbon Dioxide 25 mEq/L (23-29); Chloride 108 mEq/L (98-107); Globulin 2.3 g/dL (2.4-3.5); Glucose 45 mg/dL (70-105); Osmolality,Calculated 288 (280-300); Potassium 2.9 mEq/L (3.5-5.1); Sodium 141 mEq/L (136-145); Total Protein 5.3 g/dL (6.4-8.9); eGFR For African Americans > 60 (> 60); eGFR For Non-African Americans > 60 (> 60)
[2021-07-06 03:02] LABS: Albumin/Globulin Ratio 1.3 (1.1-2.2); Bilirubin,Direct 0.3 mg/dL (0.0-0.2); Bilirubin,Indirect 0.4 mg/dL (0.0-1.0); Bilirubin,Total 0.7 mg/dL (0.3-1.0); Globulin 2.3 g/dL (2.4-3.5); Total Protein 5.3 g/dL (6.4-8.9)
[2021-07-06] MEDS: Ipratropium 1 PUFF INHALER IH SCH ×6 (03:25→23:16)
[2021-07-06] MEDS: Insulin LISPRO 300 UNITS/3 ML VIAL SUBQ SCH ×4 (08:25→21:40)
[2021-07-06] MEDS: Insulin DETEMIR 100 UNIT/ML X5UNITS SUBQ SCH (10:22)
[2021-07-06] MEDS: amLODIPine 5 MG TABLET PO SCH ×2 (10:26→21:40)
[2021-07-06] MEDS: Pantoprazole 40 MG VIAL IVP SCH (10:26)
[2021-07-06] MEDS: Gabapentin 100 MG CAPSULE PO SCH ×2 (10:26→21:39)
[2021-07-06] MEDS: Ascorbic Acid 500 MG TABLET PO SCH ×2 (10:26→21:40)
[2021-07-06] MEDS: Zinc Sulfate 220 MG CAPSULE PO SCH (10:26)
[2021-07-06] MEDS: Dexamethasone Sodium Phos/PF 10 MG/ML VIAL IVP SCH (10:26)
[2021-07-06] MEDS: Aspirin Enteric Coated 81 MG Tablet PO SCH (10:26)
[2021-07-06] MEDS: *HR* Enoxaparin 40 MG/0.4 ML SYRINGE SQ SCH ×2 (10:26→21:45)
[2021-07-06] MEDS: Folic Acid 1 MG TABLET PO SCH (10:26)
[2021-07-06] MEDS: Remdesivir 100 MG in 0.9 % Sodium Chloride 100 ML IVPB SCH (13:41)
[2021-07-07] MEDS: Ipratropium 1 PUFF INHALER IH SCH ×6 (04:17→23:31)
[2021-07-07 05:48] LABS: Basophils % 0.4 %; Hematocrit 39.7 % (35.3-44.9); Hemoglobin 13.5 g/dL (11.5-15.4); Immature Granulocytes % 2.7 % (0-4); Lymphocytes # 0.9 K/mcL (0.6-4.6); Lymphocytes % 17.4 %; Mean Corpuscular Hemoglobin 28.3 pg (28.0-33.3); Mean Corpuscular Volume 83.2 fL (83.0-100.0); Mean Platelet Volume 9.4 fL (9.4-12.4); Monocytes # 0.4 K/mcL (0.0-1.3); Monocytes % 8.2 %; Neutrophils # 3.5 K/mcL (1.6-8.9); Platelet Count 291 K/mcL (140-400); Red Blood Count 4.77 M/mcL (3.82-4.97); Red Cell Distribution Width 12.6 % (11.5-14.5); Segmented Neutrophils % 71.3 %
[2021-07-07 05:54] LABS: White Blood Count 4.9 K/mcL (4.3-11.1)
[2021-07-07 06:09] LABS: Platelet Estimate Normal (Normal)
[2021-07-07] MEDS: 0.9 % Sodium Chloride 1,000 ML IVC SCH (07:24)
[2021-07-07] MEDS: cefTRIAXone 1,000 MG in 0.9 % Sodium Chloride Mini Bag 100 ML IVPB SCH (07:25)
[2021-07-07 08:53] LABS: Alanine Aminotransferase 33 Units/L (7-52); Albumin 2.9 g/dL (3.5-5.7); Albumin/Globulin Ratio 1.2 (1.1-2.2); Alkaline Phosphatase 58 Units/L (34-104); Aspartate Amino Transferase 31 Units/L (13-39); BUN/Creatinine Ratio 28 (6-26); Bilirubin,Total 0.7 mg/dL (0.3-1.0); Blood Urea Nitrogen 12 mg/dL (8-23); Carbon Dioxide 22 mEq/L (23-29); Chloride 107 mEq/L (98-107); Ferritin 359 ng/mL (10-120); Globulin 2.4 g/dL (2.4-3.5); Glucose 259 mg/dL (70-105); Lactate Dehydrogenase 350 Units/L (140-271); Osmolality,Calculated 295 (280-300); Potassium 4.1 mEq/L (3.5-5.1); Sodium 138 mEq/L (136-145); Total Protein 5.3 g/dL (6.4-8.9); eGFR For African Americans > 60 (> 60); eGFR For Non-African Americans > 60 (> 60)
[2021-07-07 09:06] LABS: C-Reactive Protein 23 mg/L (Less than 10)
[2021-07-07] MEDS: Insulin LISPRO 300 UNITS/3 ML VIAL SUBQ SCH ×4 (09:24→20:48)
[2021-07-07] MEDS: Pantoprazole 40 MG VIAL IVP SCH (09:24)
[2021-07-07] MEDS: Dexamethasone Sodium Phos/PF 10 MG/ML VIAL IVP SCH (09:24)
[2021-07-07] MEDS: Aspirin Enteric Coated 81 MG Tablet PO SCH (09:25)
[2021-07-07] MEDS: Gabapentin 100 MG CAPSULE PO SCH ×2 (09:25→20:47)
[2021-07-07] MEDS: amLODIPine 5 MG TABLET PO SCH ×2 (09:25→20:47)
[2021-07-07] MEDS: Ascorbic Acid 500 MG TABLET PO SCH ×3 (09:25→20:47)
[2021-07-07] MEDS: Zinc Sulfate 220 MG CAPSULE PO SCH (09:25)
[2021-07-07] MEDS: *HR* Enoxaparin 40 MG/0.4 ML SYRINGE SQ SCH ×2 (09:25→20:46)
[2021-07-07] MEDS: Folic Acid 1 MG TABLET PO SCH (09:25)
[2021-07-07] MEDS: Insulin DETEMIR 100 UNIT/ML X5UNITS SUBQ SCH (20:47)
[2021-07-08] MEDS: Ipratropium 1 PUFF INHALER IH SCH ×5 (03:47→20:58)
[2021-07-08 05:42] LABS: Basophils % 0.4 %; Hematocrit 39.4 % (35.3-44.9); Hemoglobin 13.3 g/dL (11.5-15.4); Immature Granulocytes % 1.6 % (0-4); Lymphocytes # 1.4 K/mcL (0.6-4.6); Lymphocytes % 16.9 %; Mean Corpuscular HGB Conc 33.8 g/dL (31.6-35.5); Mean Corpuscular Hemoglobin 27.8 pg (28.0-33.3); Mean Corpuscular Volume 82.4 fL (83.0-100.0); Mean Platelet Volume 9.4 fL (9.4-12.4); Monocytes # 0.6 K/mcL (0.0-1.3); Monocytes % 7.4 %; Neutrophils # 5.9 K/mcL (1.6-8.9); Platelet Count 347 K/mcL (140-400); Red Blood Count 4.78 M/mcL (3.82-4.97); Segmented Neutrophils % 73.7 %
[2021-07-08 06:00] LABS: Alanine Aminotransferase 29 Units/L (7-52); Albumin 2.9 g/dL (3.5-5.7); Albumin/Globulin Ratio 1.1 (1.1-2.2); Alkaline Phosphatase 59 Units/L (34-104); Aspartate Amino Transferase 24 Units/L (13-39); BUN/Creatinine Ratio 27 (6-26); Bilirubin,Total 0.7 mg/dL (0.3-1.0); Blood Urea Nitrogen 13 mg/dL (8-23); Calcium 8.5 mg/dL (8.6-10.3); Carbon Dioxide 27 mEq/L (23-29); Chloride 105 mEq/L (98-107); Globulin 2.6 g/dL (2.4-3.5); Glucose 145 mg/dL (70-105); Osmolality,Calculated 291 (280-300); Potassium 3.9 mEq/L (3.5-5.1); Sodium 139 mEq/L (136-145); Total Protein 5.5 g/dL (6.4-8.9); eGFR For African Americans > 60 (> 60); eGFR For Non-African Americans > 60 (> 60)
[2021-07-08 07:13] LABS: Platelet Estimate Normal (Normal)
[2021-07-08] MEDS ORDERED: Furosemide 40 MG/4 ML VIAL IVP ONE (07:49)
[2021-07-08] MEDS: Insulin LISPRO 300 UNITS/3 ML VIAL SUBQ SCH ×4 (09:43→20:17)
[2021-07-08] MEDS: Gabapentin 100 MG CAPSULE PO SCH ×2 (09:44→20:20)
[2021-07-08] MEDS: Aspirin Enteric Coated 81 MG Tablet PO SCH (09:44)
[2021-07-08] MEDS: Folic Acid 1 MG TABLET PO SCH (09:44)
[2021-07-08] MEDS: Dexamethasone Sodium Phos/PF 10 MG/ML VIAL IVP SCH (09:44)
[2021-07-08] MEDS: *HR* Enoxaparin 40 MG/0.4 ML SYRINGE SQ SCH ×2 (09:44→20:20)
[2021-07-08] MEDS: amLODIPine 5 MG TABLET PO SCH ×2 (09:44→20:20)
[2021-07-08] MEDS: Zinc Sulfate 220 MG CAPSULE PO SCH (09:44)
[2021-07-08] MEDS: Ascorbic Acid 500 MG TABLET PO SCH ×2 (09:45→20:19)
[2021-07-08] MEDS: Acetaminophen 325 MG TABLET PO PRN (13:19)
[2021-07-08] MEDS: Insulin DETEMIR 100 UNIT/ML X5UNITS SUBQ SCH (20:53)
[2021-07-09] MEDS: Ipratropium 1 PUFF INHALER IH SCH ×6 (00:25→21:01)
[2021-07-09] MEDS: Insulin LISPRO 300 UNITS/3 ML VIAL SUBQ SCH ×4 (10:34→21:46)
[2021-07-09] MEDS: Aspirin Enteric Coated 81 MG Tablet PO SCH (11:38)
[2021-07-09] MEDS: amLODIPine 5 MG TABLET PO SCH ×2 (11:38→21:48)
[2021-07-09] MEDS: Folic Acid 1 MG TABLET PO SCH (11:38)
[2021-07-09] MEDS: Gabapentin 100 MG CAPSULE PO SCH ×2 (11:39→21:47)
[2021-07-09] MEDS: Zinc Sulfate 220 MG CAPSULE PO SCH (11:39)
[2021-07-09] MEDS: *HR* Enoxaparin 40 MG/0.4 ML SYRINGE SQ SCH ×2 (11:41→21:47)
[2021-07-09] MEDS: Dexamethasone Sodium Phos/PF 10 MG/ML VIAL IVP SCH (11:41)
[2021-07-09] MEDS: Ascorbic Acid 500 MG TABLET PO SCH ×2 (11:54→21:47)
[2021-07-09] MEDS: Insulin DETEMIR 100 UNIT/ML X5UNITS SUBQ SCH (21:46)
[2021-07-10] MEDS: Ipratropium 1 PUFF INHALER IH SCH ×6 (00:46→21:02)
[2021-07-10] MEDS: Insulin LISPRO 300 UNITS/3 ML VIAL SUBQ SCH ×4 (08:45→21:45)
[2021-07-10] MEDS: Dexamethasone Sodium Phos/PF 10 MG/ML VIAL IVP SCH (09:10)
[2021-07-10] MEDS: Gabapentin 100 MG CAPSULE PO SCH ×2 (09:11→21:41)
[2021-07-10] MEDS: Aspirin Enteric Coated 81 MG Tablet PO SCH (09:11)
[2021-07-10] MEDS: *HR* Enoxaparin 40 MG/0.4 ML SYRINGE SQ SCH ×2 (09:11→21:54)
[2021-07-10] MEDS: amLODIPine 5 MG TABLET PO SCH ×2 (09:11→21:41)
[2021-07-10] MEDS: Zinc Sulfate 220 MG CAPSULE PO SCH (09:11)
[2021-07-10] MEDS: Folic Acid 1 MG TABLET PO SCH (09:12)
[2021-07-10] MEDS: Ascorbic Acid 500 MG TABLET PO SCH ×2 (09:12→21:44)
[2021-07-10] MEDS: Insulin DETEMIR 100 UNIT/ML X5UNITS SUBQ SCH (21:46)
[2021-07-10] MEDS: *HR* Enoxaparin 30 MG/0.3 ML SYRINGE SQ SCH (22:00)
[2021-07-11] MEDS: Ipratropium 1 PUFF INHALER IH SCH ×6 (00:02→20:30)
[2021-07-11] MEDS ORDERED: *HR* Enoxaparin 30 MG/0.3 ML SYRINGE SQ SCH (09:00)
[2021-07-11] MEDS: Insulin LISPRO 300 UNITS/3 ML VIAL SUBQ SCH ×3 (09:51→17:19)
[2021-07-11] MEDS: *HR* Enoxaparin 30 MG/0.3 ML SYRINGE SQ SCH (09:53)
[2021-07-11] MEDS: Gabapentin 100 MG CAPSULE PO SCH (09:54)
[2021-07-11] MEDS: Zinc Sulfate 220 MG CAPSULE PO SCH (09:54)
[2021-07-11] MEDS: Folic Acid 1 MG TABLET PO SCH (09:54)
[2021-07-11] MEDS: amLODIPine 5 MG TABLET PO SCH (09:54)
[2021-07-11] MEDS: Ascorbic Acid 500 MG TABLET PO SCH (09:54)
[2021-07-11] MEDS: Aspirin Enteric Coated 81 MG Tablet PO SCH (09:54)
[2021-07-11 15:29] VITALS: BP 111/72; PULSE 73; TEMP 98.1; O2SAT 91
[2021-07-11 16:55] LABS: BUN/Creatinine Ratio 29 (6-26); Blood Urea Nitrogen 17 mg/dL (8-23); Calcium 8.9 mg/dL (8.6-10.3); Carbon Dioxide 26 mEq/L (23-29); Chloride 104 mEq/L (98-107); Glucose 222 mg/dL (70-105); Osmolality,Calculated 296 (280-300); Potassium 3.3 mEq/L (3.5-5.1); Sodium 139 mEq/L (136-145); eGFR For African Americans > 60 (> 60); eGFR For Non-African Americans > 60 (> 60)
== END 2021-07-11 21:30 | DRG 871 ==
LOC: 3ANU → SUATTDRO 23:00 → 3ANU 07-03 07:39
PROVIDERS: ADMIT Internal Medicine; ATTEND Internal Medicine